=== PATIENT | male | born 1975 | race Caucasian/White ===

== ENCOUNTER → 2021-02-10 10:13 | Outpatient (CLI) | payer OTHER, SELFPAY ==
--- NOTE | 2021-02-10 | DI.MRI.S_ITS ---
PROCEDURE: MR SHOULDER RT W CON INDICATIONS: RIGHT SHOULDER INJURY TECHNIQUE: After the administration of 12 mL of dilute intra-articular Gadolinium contrast, oblique coronal T1 and T2 spin echo with fat saturation, oblique sagittal T1 spin echo with and without fat saturation, oblique sagittal T2 fast spin echo with fat saturation, axial T1 spin echo with fat saturation through the shoulder. COMPARISON: None. FINDINGS: Image quality: Excellent. Rotator cuff: Mild supraspinatus tendinopathy with interstitial tears. The infraspinatus, and subscapularis tendons appear intact throughout. No rotator cuff muscle atrophy on sagittal images. Bones and bursae: No bone marrow contusions or fractures. Faint T2 hyperintense signal in the distal aspect of the clavicle, which may reflect edema. [id number] arthrosis of the acromioclavicular joint. The acromion demonstrates conventional anatomy, without an os acromiale. Capsule and soft tissues: The labrum and glenohumeral ligaments appear intact. The long head of the biceps tendon demonstrates normal location and morphology. The rotator interval appears normal, without fibrosis. The cortical clavicular ligament is intact. No intra-articular bodies. IMPRESSION: 1. Mild supraspinatus tendinopathy with interstitial tears. 2. [id number] arthrosis of the AC joint. Dictated by: Nicho Ivy M.D. on 02/10/2021 at 12:05 Approved by: Nicho Ivy M.D. on 02/10/2021 at 12:11
--- NOTE | 2021-02-10 | DI.RAD.S_ITS ---
PROCEDURE: FL SHOULDER INJECTION MR/CT RT INDICATIONS: RIGHT SHOULDER INJURY COMPARISON: None TECHNIQUE: The indications, alternatives, benefits, risks, and complications of the procedure were explained to the patient. Written informed consent was obtained and placed in the chart. The shoulder was examined fluoroscopically and a site for needle placement chosen for entry into the glenohumeral joint from an anterior approach. The skin was prepped and draped in a sterile fashion, and 1% lidocaine infiltrated from skin down to joint capsule. A spinal needle was inserted into the glenohumeral joint, and a small amount of iodinated contrast media injected to confirm intra-articular placement of the needle tip. This was followed by approximately 12 mL dilute solution of a gadolinium containing MR contrast agent. The needle was removed and a dressing was applied. The patient was given postprocedural instructions and sent to the MR suite for MR imaging. FINDINGS: A single fluoroscopic spot image demonstrates intra-articular location of injected iodinated contrast. IMPRESSION: Successful fluoroscopically guided administration of dilute Gadolinium solution into the shoulder joint for MR arthrogram. Dictated by: Sanya Farias M.D. on 02/10/2021 at 14:04 Approved by: Sanya Farias M.D. on 02/10/2021 at 14:11
== END ==
DX: M75.101 Unspecified rotator cuff tear or rupture of right shoulder, not specified as traumatic (principal); M25.511 Pain in right shoulder
CPT/HCPCS: 23350; 73222; 77002